=== PATIENT | female | born 1985 | race Caucasian/White ===

== ENCOUNTER 2017-07-15 23:35 | Inpatient (IN) | payer BC, OTHER ==
[2017-07-16] MEDS ORDERED: RX INFO: IV CONTRAST WAS GIVEN 1 EACH MISC MISCELLANE PRN (00:13)
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
[2017-07-16 01:31] LABS: Basophils % (A) 0 %; CH 24.2; CHCM 32.9; Eosinophils % (A) 0 %; HCT 37.2 % (34.0-46.0); HDW 2.75; HGB 11.7 gm/dL (11.4-16.0); Luc # (Auto) 0.14; Luc % (Auto) 1; Lymphocytes # (A) 1.2 k/uL (1.0-4.8); Lymphocytes % (A) 8 %; MCH 23.3 pg (25.0-35.0); MCHC 31.6 g/dL (31.0-37.0); MCV 73.9 fL (80.0-100.0); Mean Platelet Volume 7.1; Microcytosis Slight; Monocytes # (A) 0.7 k/uL (0-1.0); Monocytes % (A) 5 %; Neutrophils % (A) 87 %; RBC 5.04 m/uL (3.80-5.40); RDW 15.4 % (11.5-15.5); WBC 16.1 k/uL (3.8-10.6); WBC (Perox) 17.14
[2017-07-16 01:40] LABS: ALT 29 U/L (9-52); AST 19 U/L (14-36); Acetaminophen <10.0 ug/mL; Alcohol <10 mg/dL; Alkaline Phosphatase 82 U/L (38-126); Anion Gap 11 mmol/L; Blood Urea Nitrogen 23 mg/dL (7-17); Calcium 9.3 mg/dL (8.4-10.2); Carbon Dioxide 25 mmol/L (22-30); Chloride 104 mmol/L (98-107); Glucose 143 mg/dL (74-99); Non-African American GFR(MDRD) >60 (>60 ml/min/1.73 sqM); Potassium 3.9 mmol/L (3.5-5.1); Salicylate <1.0 mg/dL; Sodium 140 mmol/L (137-145); Total Bilirubin 0.2 mg/dL (0.2-1.3)
[2017-07-16 01:53] LABS: Appearance,Urine Clear (Clear); Bilirubin,Urine Negative (Negative); Glucose,Urine (UA) Negative (Negative); Ketones,Urine Negative (Negative); Leukocyte Esterase,Urine Trace (Negative); Mucus,Urine Rare /hpf; Nitrite,Urine Negative (Negative); PH, Urine 6.5 (5.0-8.0); Particle Count 5439; Protein,Urine Negative (Negative); RBC,Urine 1 /hpf (0-5); Specific Gravity,Urine 1.022 (1.001-1.035); Squamous Epithelial Cell,Urine 1 /hpf (0-4); UA Billing (MACRO vs. MICRO) MICRO; Urobilinogen,Urine <2.0 mg/dL (<2.0); WBC,Urine 2 /hpf (0-5)
[2017-07-16 01:55] LABS: Creatine Kinase 81 U/L (30-135)
[2017-07-16 02:08] LABS: Creatine Kinase MB 0.8 ng/mL (0.0-2.4); Troponin I <0.012 ng/mL (0.000-0.034)
--- NOTE | 2017-07-16 03:37 | CT ---
EXAM: CT Head Without Intravenous Contrast CLINICAL HISTORY: Reason: trauma TECHNIQUE: Axial computed tomography images of the head/brain without intravenous contrast. DLP is 1098.80 mGy-cm. This CT exam was performed using one or more of the following dose reduction techniques: automated exposure control, adjustment of the mA and/or kV according to patient size, and/or use of iterative reconstruction technique. COMPARISON: No relevant prior studies available. FINDINGS: Brain: Unremarkable. No hemorrhage. No significant white matter disease. No edema. Ventricles: Unremarkable. No ventriculomegaly. Bones/joints: Unremarkable. No acute fracture. Soft tissues: Unremarkable. Sinuses: Unremarkable as visualized. No acute sinusitis. Mastoid air cells: Unremarkable as visualized. No mastoid effusion. IMPRESSION: Normal head/brain CT. EXAM: CT Cervical Spine Without Intravenous Contrast CLINICAL HISTORY: Reason: trauma TECHNIQUE: Axial computed tomography images of the cervical spine without intravenous contrast. DLP is 923.20 mGy-cm. This CT exam was performed using one or more of the following dose reduction techniques: automated exposure control, adjustment of the mA and/or kV according to patient size, and/or use of iterative reconstruction technique. COMPARISON: No relevant prior studies available. FINDINGS: Vertebrae: Unremarkable. No acute fracture. Discs/spinal canal/neural foramina: No acute findings. No spinal canal stenosis. Soft tissues: Unremarkable. Lung apices: Unremarkable as visualized. IMPRESSION: Normal cervical spine CT.
--- NOTE | 2017-07-16 03:41 | CT ---
EXAM: CT Chest With Intravenous Contrast CLINICAL HISTORY: Reason: trauma TECHNIQUE: Axial computed tomography images of the chest with intravenous contrast. DLP is 1617.90 mGy-cm for chest, abdomen, and pelvis. This CT exam was performed using one or more of the following dose reduction techniques: automated exposure control, adjustment of the mA and/or kV according to patient size, and/or use of iterative reconstruction technique. COMPARISON: No relevant prior studies available. FINDINGS: Lungs: Unremarkable. No mass. No consolidation. Pleural space: Unremarkable. No pneumothorax. No significant effusion. Heart: Unremarkable. No cardiomegaly. No significant pericardial effusion. Bones/joints: Unremarkable. No acute fracture. No dislocation. Soft tissues: Unremarkable. Vasculature: Unremarkable. No thoracic aortic aneurysm. Lymph nodes: Unremarkable. No enlarged lymph nodes. IMPRESSION: Normal chest CT. EXAM: CT Abdomen and Pelvis With Intravenous Contrast CLINICAL HISTORY: Reason: trauma TECHNIQUE: Axial computed tomography images of the abdomen and pelvis with intravenous contrast. DLP is 1617.90 mGy-cm for chest, abdomen, and pelvis. This CT exam was performed using one or more of the following dose reduction techniques: automated exposure control, adjustment of the mA and/or kV according to patient size, and/or use of iterative reconstruction technique. COMPARISON: No relevant prior studies available. FINDINGS: Lower thorax: No acute findings. ABDOMEN: Liver: Unremarkable. No mass. Gallbladder and bile ducts: Cholecystectomy noted. No ductal dilation. Pancreas: Unremarkable. No mass. No ductal dilation. Spleen: Unremarkable. No splenomegaly. Adrenals: Unremarkable. No mass. Kidneys and ureters: Unremarkable. No solid mass. No hydronephrosis. Stomach and bowel: Gastrectomy changes noted. Stool throughout the colon. No obstruction. Appendix: Appendix is normal. PELVIS: Bladder: Unremarkable. No mass. Reproductive: Unremarkable as visualized. ABDOMEN and PELVIS: Intraperitoneal space: Unremarkable. No free air. No significant fluid collection. Bones/joints: No acute fracture. No dislocation. Soft tissues: Unremarkable. Vasculature: Unremarkable. No abdominal aortic aneurysm. Lymph nodes: Unremarkable. No enlarged lymph nodes. IMPRESSION: No acute findings.
[2017-07-16] MEDS ORDERED: MAG HYDROX/AL HYDROX/SIMETH 30 ML CUP PO PRN (07:21)
[2017-07-16] MEDS ORDERED: ACETAMINOPHEN TAB 325 MG TAB PO PRN ×2 (07:30→11:38)
[2017-07-16] MEDS ORDERED: MAGNESIUM HYDROXIDE 2,400 MG/10 ML CUP PO PRN (07:31)
[2017-07-16] MEDS ORDERED: FLUoxetine HCL 20 MG CAP PO ONE (09:21)
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
[2017-07-16] MEDS: MULTIVITAMINS, THERA 1 EACH TAB PO SCH (12:10)
--- NOTE | 2017-07-16 16:58 | XR ---
EXAMINATION TYPE: XR finger RT DATE OF EXAM: 07/16/2017 COMPARISON: NONE HISTORY: Thumb pain and numbness TECHNIQUE: 3 views of the thumb were obtained. FINDINGS: No acute fracture or dislocation. No significant degenerative changes are seen. No subcutan eous emphysema or radiopaque foreign body. Osseous mineralization is within normal limits. IMPRESSION: No evidence of acute fracture or dislocation.
--- NOTE | 2017-07-16 17:01 | XR ---
EXAMINATION TYPE: XR wrist limited bilateral DATE OF EXAM: 07/16/2017 CLINICAL HISTORY: Numbness and pain of the right wrist. TECHNIQUE: Frontal, lateral and oblique images of the bilateral wrists are obtained. COMPARISON: Thumb radiographs of the same date. FINDINGS: There is no acute fracture/dislocation evident in the bilateral wrists. The joint spaces in the bilateral wrists appear within normal limits. The overlying soft tissue appears unremarkable. Although the right thumb appears subluxed on a single image, this is thought to be positional as it is not redemonstrated on the thumb radiograph's of the same date, additional view, and is similar on the left. IMPRESSION: There is no acute fracture or dislocation in the wrists.
[2017-07-16] MEDS: IBUPROFEN 600 MG TAB PO PRN (17:59)
[2017-07-16] MEDS: diphenhydrAMINE 25 MG CAP PO PRN (21:14)
[2017-07-17] MEDS: IBUPROFEN 600 MG TAB PO PRN (07:47)
[2017-07-17 08:10] LABS: CH 23.2; CHCM 30.3; HCT 38.1 % (34.0-46.0); HDW 2.63; HGB 11.7 gm/dL (11.4-16.0); Hypochromasia Marked; MCH 23.7 pg (25.0-35.0); MCHC 30.7 g/dL (31.0-37.0); MCV 77.1 fL (80.0-100.0); Mean Platelet Volume 6.2; RBC 4.95 m/uL (3.80-5.40); RDW 14.5 % (11.5-15.5); WBC 8.3 k/uL (3.8-10.6)
[2017-07-17 08:21] LABS: Anion Gap 7 mmol/L; Blood Urea Nitrogen 21 mg/dL (7-17); Calcium 8.9 mg/dL (8.4-10.2); Carbon Dioxide 29 mmol/L (22-30); Chloride 105 mmol/L (98-107); Glucose 84 mg/dL (74-99); Non-African American GFR(MDRD) >60 (>60 ml/min/1.73 sqM); Potassium 4.2 mmol/L (3.5-5.1); Sodium 141 mmol/L (137-145)
[2017-07-17] MEDS: DESVENLAFAXINE SUCCINATE 50 MG TAB.ER.24H PO SCH (09:18)
[2017-07-17 10:51] LABS: Hemoglobin A1C 5.7 % (4.2-6.1)
[2017-07-17] MEDS: MULTIVITAMINS, THERA 1 EACH TAB PO SCH (12:08)
[2017-07-17 12:23] LABS: Glucose,Whole Blood 84 mg/dL (75-99)
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
[2017-07-17] MEDS: diphenhydrAMINE 25 MG CAP PO PRN (21:51)
[2017-07-17] MEDS: LORazepam 1 MG TAB PO PRN (22:39)
[2017-07-18] MEDS: DESVENLAFAXINE SUCCINATE 50 MG TAB.ER.24H PO SCH (09:15)
[2017-07-18] MEDS: LORazepam 1 MG TAB PO PRN ×2 (09:16→20:57)
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
[2017-07-18] MEDS: MULTIVITAMINS, THERA 1 EACH TAB PO SCH (13:03)
[2017-07-19 06:39] VITALS: RESP 16
[2017-07-19] MEDS: DESVENLAFAXINE SUCCINATE 50 MG TAB.ER.24H PO SCH (10:06)
[2017-07-19] MEDS: LORazepam 1 MG TAB PO PRN ×2 (12:06→21:06)
[2017-07-19] MEDS: MULTIVITAMINS, THERA 1 EACH TAB PO SCH (12:06)
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
[2017-07-19] MEDS: diphenhydrAMINE 25 MG CAP PO PRN (21:57)
[2017-07-20 06:11] VITALS: BP 108/58; PULSE 51; TEMP 98.3
[2017-07-20] MEDS: DESVENLAFAXINE SUCCINATE 50 MG TAB.ER.24H PO SCH (08:40)
[2017-07-20] MEDS: LORazepam 1 MG TAB PO PRN (08:42)
--- NOTE | 2017-07-20 10:26 | P.DS ---
Providers Date of admission: 07/16/17 06:46 Expected date of discharge: 07/20/17 Attending physician: Isidra Brown MD Consults: 07/16/17 07:21 Consult Physician Routine Consulting Provider: Victorino Wall Consult Reason/Comments: medical management Do you want consulting provider notified?: Already Contacted Primary care physician: Stated None Hospital Course: Discharge Diagnoses: Major depressive disorder, recurrent, severe; Cannabis use disorder,mild Reason for Admission: Patient is a 32-year-old female after a suicide attempt by driving her car into the [place]. Patient reported that she had been feeling depressed for quite some time, not sleeping well and was under increasing stress at work. She states that she was working at the [employer] , states that it was becoming increasingly overwhelming due to numerous issues there, she was leaving work early and also had had a discussion with her boss on the day prior to admission that she felt did not go well. She reports that she has not been sleeping well, not paying bills other than her car payment and rent. Patient states that she had stopped doing much of the activities that she had been including recreational, caring for her apartment. Patient was admitted to [facility] at the age of 17 and this followed a suicide attempt where she cut her wrist. She is reportedly been on multiple medications over the years and was recently placed on Prozac 20 mg which she increased to 40 mg by her primary care doctor in March of this year. Patient states that she has had a sleep apnea diagnosis in the past when she was heavier and states that she has not recently been assessed for that and continues to have difficulty with her sleep using Benadryl and melatonin on occasion. Patient has also been using marijuana since March on an increasing basis. Patient recently moved here from [place] to open the [facility]. Hospital Course: Patient was admitted on a voluntary basis, routine laboratory studies were ordered, medical consultation was obtained and the patient was placed on routine precautions. Patient was also ordered group and activity therapy. Patient reported that the Prozac had been making her feel numb and so she was changed to Pristiq 50 mg in the morning. Patient was also continued on Benadryl as needed for sleep. Patient was attending groups and activities, caring for her personal hygiene and reported that she was no longer feeling suicidal and discussed the stress that she had been under. Patient also discussed prior traumas in her life, her interest in outpatient therapy and counseling to assist her. Patient reported no side effects from the Pristiq and reported that her mood was improving and she felt ready to leave the hospital. Patient states that she was sleeping well here in the hospital, and she was eating without difficulty. Patient discussed her plans to return to work, begin exercising and caring for herself. Discharge Mental Status:Appearance/Attitude: Patient is neatly and appropriately dressed, makes good eye contact and is cooperative. Behavior: Patient is not displaying any psychomotor agitation or retardation. Speech/Language: Patient's speech is spontaneous, normal volume and rhythm and she is coherent. Thought Process: Patient is goal-directed, is no evidence of circumstantial or tangential thought or loose associations and flight of ideas. Thought Content: Patient denies any auditory or visual hallucinations no delusions or paranoid ideation are elicited. Patient reports that she is attending groups and activities and participating, feeling less depressed and she has been sleeping well and eating well. Patient discussed the stress at work, her need to return to exercise and her interest in continuing in outpatient treatment. Suicidal/Homicidal Ideation: Patient denies any current suicidal or homicidal ideation. Sensorium/Cognition: Patient is alert and oriented to person, place, and time and her memory is grossly intact. Mood/Affect: Patient's mood is pleasant and euthymic and her affect is appropriate. Insight/Judgement: Patient's insight and judgment are fair. Laboratory Last Values WBC 8.3 k/uL (3.8-10.6) 07/17/17 07:40 RBC 4.95 m/uL (3.80-5.40) 07/17/17 07:40 Hgb 11.7 gm/dL (11.4-16.0) 07/17/17 07:40 Hct 38.1 % (34.0-46.0) 07/17/17 07:40 MCV 77.1 fL (80.0-100.0) L 07/17/17 07:40 MCH 23.7 pg (25.0-35.0) L 07/17/17 07:40 MCHC 30.7 g/dL (31.0-37.0) L 07/17/17 07:40 RDW 14.5 % (11.5-15.5) 07/17/17 07:40 Plt Count 354 k/uL (150-450) 07/17/17 07:40 Neutrophils % 87 % 07/16/17 01:24 Lymphocytes % 8 % 07/16/17 01:24 Monocytes % 5 % 07/16/17 01:24 Eosinophils % 0 % 07/16/17 01:24 Basophils % 0 % 07/16/17 01:24 Neutrophils # 14.0 k/uL (1.3-7.7) H 07/16/17 01:24 Lymphocytes # 1.2 k/uL (1.0-4.8) 07/16/17 01:24 Monocytes # 0.7 k/uL (0-1.0) 07/16/17 01:24 Eosinophils # 0.0 k/uL (0-0.7) 07/16/17 01:24 Basophils # 0.0 k/uL (0-0.2) 07/16/17 01:24 Hypochromasia Marked 07/17/17 07:40 Microcytosis Slight 07/16/17 01:24 Sodium 141 mmol/L (137-145) 07/17/17 07:40 Potassium 4.2 mmol/L (3.5-5.1) 07/17/17 07:40 Chloride 105 mmol/L (98-107) 07/17/17 07:40 Carbon Dioxide 29 mmol/L (22-30) 07/17/17 07:40 Anion Gap 7 mmol/L 07/17/17 07:40 BUN 21 mg/dL (7-17) H 07/17/17 07:40 Creatinine 0.75 mg/dL (0.52-1.04) 07/17/17 07:40 Est GFR (MDRD) Af Amer >60 (>60 ml/min/1.73 sqM) 07/17/17 07:40 Est GFR (MDRD) Non-Af >60 (>60 ml/min/1.73 sqM) 07/17/17 07:40 Glucose 84 mg/dL (74-99) 07/17/17 07:40 POC Glucose (mg/dL) 84 mg/dL (75-99) 07/17/17 12:11 POC Glu Measurement Specialist TRUONG Angie Harding 07/17/17 12:[address] Glu mg/dL 117 mg/dL 07/17/17 07:40 Hemoglobin A1c 5.7 % (4.2-6.1) 07/17/17 07:40 Calcium 8.9 mg/dL (8.4-10.2) 07/17/17 07:40 Total Bilirubin 0.2 mg/dL (0.2-1.3) 07/16/17 01:24 AST 19 U/L (14-36) 07/16/17 01:24 ALT 29 U/L (9-52) 07/16/17 01:24 Alkaline Phosphatase 82 U/L (38-126) 07/16/17 01:24 Total Creatine Kinase 81 U/L (30-135) 07/16/17 01:24 CK-MB (CK-2) 0.8 ng/mL (0.0-2.4) 07/16/17 01:24 CK-MB (CK-2) Rel Index 1.0 07/16/17 01:24 Troponin I <0.012 ng/mL (0.000-0.034) 07/16/17 01:24 Total Protein 7.0 g/dL (6.3-8.2) 07/16/17 01:24 Albumin 4.0 g/dL (3.5-5.0) 07/16/17 01:24 TSH 0.951 mIU/L (0.465-4.680) 07/17/17 07:40 Urine Color Yellow 07/16/17 01:35 Urine Appearance Clear (Clear) 07/16/17 01:35 Urine pH 6.5 (5.0-8.0) 07/16/17 01:35 Ur Specific [place] 1.022 (1.001-1.035) 07/16/17 01:35 Urine Protein Negative (Negative) 07/16/17 01:35 Urine Glucose (UA) Negative (Negative) 07/16/17 01:35 Urine Ketones Negative (Negative) 07/16/17 01:35 Urine Blood Negative (Negative) 07/16/17 01:35 Urine Nitrite Negative (Negative) 07/16/17 01:35 Urine Bilirubin Negative (Negative) 07/16/17 01:35 Urine Urobilinogen <2.0 mg/dL (<2.0) 07/16/17 01:35 Ur Leukocyte Esterase Trace (Negative) H 07/16/17 01:35 Urine RBC 1 /hpf (0-5) 07/16/17 01:35 Urine WBC 2 /hpf (0-5) 07/16/17 01:35 Ur Squamous Epith Cells 1 /hpf (0-4) 07/16/17 01:35 Urine Mucus Rare /hpf (None) H 07/16/17 01:35 Urine HCG, Qual Not Detected (Not Detectd) 07/16/17 01:35 Salicylates <1.0 mg/dL 07/16/17 01:24 Urine Opiates Screen Not Detected (NotDetected) 07/16/17 01:35 Ur Oxycodone Screen Not Detected (NotDetected) 07/16/17 01:35 Urine Methadone Screen Not Detected (NotDetected) 07/16/17 01:35 Ur Propoxyphene Screen Not Detected (NotDetected) 07/16/17 01:35 Acetaminophen <10.0 ug/mL 07/16/17 01:24 Ur Barbiturates Screen Not Detected (NotDetected) 07/16/17 01:35 U Tricyclic Antidepress Not Detected (NotDetected) 07/16/17 01:35 Ur Phencyclidine Scrn Not Detected (NotDetected) 07/16/17 01:35 Ur Amphetamines Screen Not Detected (NotDetected) 07/16/17 01:35 U Methamphetamines Scrn Not Detected (NotDetected) 07/16/17 01:35 U Benzodiazepines Scrn Not Detected (NotDetected) 07/16/17 01:35 Urine Cocaine Screen Not Detected (NotDetected) 07/16/17 01:35 U Marijuana (THC) Screen Detected (NotDetected) H 07/16/17 01:35 Serum Alcohol <10 mg/dL 07/16/17 01:24 Risk Assessment: Patient's risk for self-harm is moderate due to 2 prior suicide attempts, limited coping strategies. 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 Patient continue on Pristiq 50 mg in the morning and she was given a prescription for this. Patient and I discussed not using any alcohol or marijuana or other drugs. Patient was encouraged to follow-up in outpatient counseling and seeing a psychiatrist to monitor her medication and response to the Pristiq and she will be followed at [facility] Patient was encouraged to follow-up with her primary care physician should her sleep remained disturbed to obtain another sleep study to see if she continues to have sleep apnea or not. Patient Condition at Discharge: Stable Plan - Discharge Summary New Discharge Prescriptions: New Desvenlafaxine Succinate [Pristiq ER] 50 mg PO DAILY #14 tab Continue diphenhydrAMINE [Benadryl] 50 mg PO HS PRN PRN Reason: SLEEP Multivitamins, Thera [Multivitamin (formulary)] 1 tab PO DAILY Acetaminophen [Tylenol] 650 mg PO Q8HR PRN PRN Reason: Pain Discontinued FLUoxetine HCL [PROzac] 40 mg PO DAILY Discharge Medication List Acetaminophen [Tylenol] 650 mg PO Q8HR PRN 07/16/17 [History] Multivitamins, Thera [Multivitamin (formulary)] 1 tab PO DAILY 07/16/17 [History ] diphenhydrAMINE [Benadryl] 50 mg PO HS PRN 07/16/17 [History] Desvenlafaxine Succinate [Pristiq ER] 50 mg PO DAILY #14 tab 07/20/17 [Rx] Follow up Appointment(s)/Referral(s): None,Stated [Primary Care Provider] - 1-2 days Patient Instructions/Handouts: Depression (GEN), Suicide Prevention for Adults (GEN) Activity/Diet/Wound Care/Special Instructions: Activity and diet as tolerated. Avoid the use of street drugs and alcohol. Take all medications as prescribed. When you in need of refills on your medications please contact your medical provider and/or outpatient psychiatrist to have this done. Please go to scheduled outpatient appointment for aftercare treatment. If symptoms return or become worse call the crisis line at [phone] and/or go to the nearest emergency room for an evaluation. Discharge Disposition: HOME SELF-CARE
[2017-07-20] MEDS: MULTIVITAMINS, THERA 1 EACH TAB PO SCH (12:12)
== END 2017-07-20 12:12 | disposition home or self-care (01) | DRG 885 ==
LOC: EC 23:35 → 3MHU 07-16 06:46
PROVIDERS: ADMIT Psychiatry & Neurology Psychiatry; ATTEND Psychiatry & Neurology Psychiatry
DX: F33.2 Major depressive disorder, recurrent severe without psychotic features (principal); R45.851 Suicidal ideations; E86.0 Dehydration; D72.829 Elevated white blood cell count, unspecified; S60.211A Contusion of right wrist, initial encounter; F12.20 Cannabis dependence, uncomplicated; E66.9 Obesity, unspecified; F41.9 Anxiety disorder, unspecified; G47.30 Sleep apnea, unspecified; R73.9 Hyperglycemia, unspecified; F43.9 Reaction to severe stress, unspecified; S60.212A Contusion of left wrist, initial encounter; Z79.899 Other long term (current) drug therapy; Z91.5 Personal history of self-harm; Z62.810 Personal history of physical and sexual abuse in childhood; Z90.49 Acquired absence of other specified parts of digestive tract; X71.3XXA Intentional self-harm by drowning and submersion in natural water, initial encounter; Z86.59 Personal history of other mental and behavioral disorders; Z81.8 Family history of other mental and behavioral disorders
CPT/HCPCS: 36415; 70450; 71260; 72125; 74177; 80048; 80053; 80306; 80320; 81001; 81025; 82075; 82550; 82553; 83036; 83520; 84443; 84484; 85025; 85027; 99285